=== PATIENT | female | born 2000 ===

== ENCOUNTER 2025-06-06 17:18 | Emergency (ER) | payer SELFPAY ==
--- NOTE | ~2025-06-06 | US_ITS ---
CLINICAL HISTORY: SEVERE LOWER PELVIC TTP. HCG PENDING, PRIOR OV CYS Transabdominal pelvic ultrasound Comparison: None Findings: Uterus 5.6 x 3.1 x 2.8 cm. Endometrium 3 mm thickness. No significant free fluid. Right ovary ovary is not identified. Transvaginal study can not be performed. 4.0 x 3.9 x 3.9 cm heterogeneous structure measured in left adnexa. This may represent the patient's left ovary. No specific abnormality is noted. Flow was not attempted. Transvaginal study may be of value. Impression: Limited study as above Question visualization of normal left ovary Recommend follow-up transvaginal study This document has been electronically signed by: Nemesio Armando MD on 06/06/2025 19:19:44
[2025-06-06 17:35] VITALS: BP 121/71; PULSE 116; RESP 20; TEMP 36.6; O2SAT 95; BMI 22.8
--- NOTE | 2025-06-06 17:36 | ED.ABDPAIN ---
HPI - Abdominal Pain General Chief Complaint: Nausea/Vomiting/Diarrhea Stated Complaint: vomiting/abd pain Time Seen by Provider: 06/06/25 18:35 Related Data Allergies Allergy/AdvReac Type Severity Reaction Status Date / Time No Known Allergies Allergy Verified 06/06/25 17:38 [facility] Social History Social History Advance Directives: No Advance Directives Information Provided: No Do you have a plan to hurt others: No Plan Physical Exam ED Vital Signs: BMI result Body Mass Index 22.8 Course Course Course Narrative: This is a Rapid Medical Exam performed in triage by Ava Waldron PA-C. Full HPI, ROS and PE to be performed by primary ED provider. 25 yo F presenting to the ED c/o abdominal pain, CP, N/V since last night. Also reports myalgias, cough, decreased PO intake. +blood in emesis PE: anxious, abdomen soft diffusely ttp, no rebound or guarding Plan: EKG, labs, UA, CXR, SARs Medical Decision Making Lab Data 06/06/25 18:12 06/06/25 18:12 Labs: Lab Results 06/06/25 Range/Units 18:12 WBC 11.5 H (4.8-10.8) X10*3/uL RBC 4.54 (4.20-5.50) X10*6/uL Hgb 12.7 (12.0-16.0) g/dl Hct 37.2 (37.0-47.0) % MCV 81.9 (80.0-98.0) fL MCH 28.0 (27.0-33.0) pg MCHC 34.1 (31.0-35.0) g/dl RDW 12.5 (11.0-16.0) % Plt Count 259 (160-400) X10*3/uL MPV 10.5 (9.4-12.3) fL Immature Gran % (Auto) 0.6 H (0.0-0.4) % Neut % (Auto) 84.0 H (45-73) % Lymph % (Auto) 6.5 L (20-40) % Broome % (Auto) 8.6 (2-11) % Eos % (Auto) 0.0 (0-4) % Baso % (Auto) 0.3 (0-2) % Lymph # (Auto) 0.8 L (1.2-4.9) X10*3/uL Broome # (Auto) 1.0 (0.1-1.2) X10*3/uL Eos # (Auto) 0.0 (0.0-0.4) X10*3/uL Baso # (Auto) 0.0 (0.0-0.2) X10*3/uL Abs Immat Gran (auto) 0.07 H (0.00-0.03) X10*3/uL Absolute Neuts (auto) 9.7 H (2.0-8.3) x10*3/uL Absolute Nucleated RBC 0.000 (0.0-0.012) X10*3/uL Nucleated RBC % (auto) 0.0 (0.0-0.2) /100WBC Sodium 139 (135-145) mmol/L Potassium 3.0 L (3.3-5.1) mmol/L Chloride 108 (96-108) mmol/L Carbon Dioxide 20 L (22-29) mmol/L Anion Gap 14 (12-20) BUN 11 (9-16) mg/dL Creatinine 0.79 (0.5-1.4) mg/dL Estim Creat Clear Calc 84.6 Estimated GFR > 60 Random Glucose 126 H (60-115) mg/dL Calcium 9.3 (8.4-10.2) mg/dL Magnesium 1.6 (1.6-2.6) mg/dL Total Bilirubin 0.7 (0.0-1.0) mg/dL Direct Bilirubin 0.3 (0.0-0.5) mg/dL AST 31 (5-31) U/L ALT 18 (0-31) U/L Alkaline Phosphatase 58 (39-117) U/L Troponin I High Sens < 2.7 (<3.5-17.0) ng/L Total Protein 7.6 (6.5-8.0) g/dL Albumin 4.5 (3.5-5.0) g/dL Lipase 18 (8-78) U/L Beta HCG, Quant < 2 mIU/mL Influenza Type A (PCR) POSITIVE A (Negative) Influenza Type B (PCR) NEGATIVE (Negative) RSV RNA Qual (PCR) NEGATIVE (Negative) SARS-CoV-2 RNA (RT-PCR) NEGATIVE (Negative) Discharge Plan Discharge Clinical Impression: Abdominal pain Patient Disposition: Left W/O Completing Treatment Discharge Date/Time: 06/06/25 22:22
--- NOTE | 2025-06-06 17:37 | ECG_ITS ---
Test Reason : ABD PAIN Blood Pressure : */* mmHG Vent. Rate : 108 BPM Atrial Rate : 108 BPM P-R Int : 152 ms QRS Dur : 78 ms QT Int : 320 ms P-R-T Axes : 60 0 21 degrees QTcB Int : 428 ms Sinus tachycardia cannot exclude old Septal infarct , age undetermined ; could be related to body habitus and lead placement Abnormal ECG No previous ECGs available Referred By: Ava Waldron Electronically Signed By: KIMI MARTIN
[2025-06-06 18:18] LABS: MANUAL DIFF FLAG NO
[2025-06-06 18:34] LABS: Alanine Aminotransferase 18 U/L (0-31); Albumin Level 4.5 g/dL (3.5-5.0); Alkaline Phosphatase 58 U/L (39-117); Anion Gap 14 (12-20); Aspartate Amino Transferase 31 U/L (5-31); Blood Urea Nitrogen 11 mg/dL (9-16); Calcium 9.3 mg/dL (8.4-10.2); Carbon Dioxide 20 mmol/L (22-29); Chloride 108 mmol/L (96-108); Creatinine Clr Calc Pharmacy 84.6; Estimated Glomerular Filt Rate > 60; Lipase 18 U/L (8-78); Magnesium 1.6 mg/dL (1.6-2.6); Potassium 3.0 mmol/L (3.3-5.1); Sodium 139 mmol/L (135-145); Total Protein 7.6 g/dL (6.5-8.0)
[2025-06-06 18:41] LABS: Troponin-I High Sensitivity < 2.7 ng/L (<3.5-17.0)
[2025-06-06 18:56] LABS: Resp Syncy Virus RNA Qual PCR NEGATIVE (Negative); SARS COV2 PCR INHOUSE NEGATIVE (Negative)
[2025-06-06 19:16] LABS: Hematocrit 37.2 % (37.0-47.0); Hemoglobin 12.7 g/dl (12.0-16.0); Imm Gran Abs Auto 0.07 X10*3/uL (0.00-0.03); Imm Gran Pct Auto 0.6 % (0.0-0.4); Lymphocytes Absolute Auto 0.8 X10*3/uL (1.2-4.9); Mean Corpuscular HGB Conc 34.1 g/dl (31.0-35.0); Mean Corpuscular Hemoglobin 28.0 pg (27.0-33.0); Mean Corpuscular Volume 81.9 fL (80.0-98.0); NRBC Abs Auto 0.000 X10*3/uL (0.0-0.012); NRBC Pct Auto 0.0 /100WBC (0.0-0.2); Platelet Count 259 X10*3/uL (160-400); Red Blood Count 4.54 X10*6/uL (4.20-5.50); White Blood Count 11.5 X10*3/uL (4.8-10.8)
--- OUTSIDE RECORDS SUMMARY | 2025-06-06 20:47 | XMS_ITS | Clinical Summary ---
Author Organization [address] Address [address] [place] [id number] Care Team Providers Care Ramp Lead Name Role Phone No, Pcp (Do Not Change Name) Primary Care Provid er Unavailable Allergies Active Allergy Reactions Criticality Noted Date Comments Morphine Anaphylaxis High 08/27/2023 Medications No known medications Active Problems Problem Noted Date Diagnosed Date Acute vaginitis 07/07/2024 Hematuria, unspecified type 07/07/2024 Family History Relation Name Status Comments Father Mother Alive Social History Tobacco Use Types Packs/Day Years Used Date Smoking Tobacco: Never Smokeless Tobacco: Never Tobacco Cessation:Counseling Given: Not Answered Alcohol Use Standard Drinks/Week Comments Yes 0 (1 standard drink = 0.6 oz pur e alcohol) Comments Unknown Sex and Gender Information Value Date Recorded Sex Assigned at Not on file Legal Sex Female 7:15 AM EST Gender Identity Not on file Sexual Orientation Not on file Last Filed Vital Signs Vital Sign Reading Time Taken Comments Blood Pressure 106/64 07/07/2024 10:38 AM EST Pulse 66 07/07/2024 10:38 AM EST Temperature 36.7 C (98.1 F) 07/07/2024 10:38 AM EST Respiratory Rate 15 07/07/2024 10:38 AM EST Oxygen Saturation 98% 07/07/2024 10:38 AM EST Inhaled Oxygen Concentration - - Weight 56.2 kg (124 lb) 07/07/2024 10:38 AM EST Height 157.5 cm (5' 2 ) 07/07/2024 10:38 AM EST Body Mass Index 22.68 07/07/2024 10:38 AM EST Plan of Treatment Health Maintenance Due Date Last Done Comments HIV screening 2011 Hepatitis C screening 2016 Tetanus adult (Td q 10,TDAP once) 2018 Cervical cancer screening 2019 Influenza vaccine 01/06/2025 Covid-19 vaccine series ( - 2024- season) 2025 RSV Immunization (1 - 1-dose 75+ series) 2073 Meningococcal B Vaccine Aged Out No l onger eligible based on patient's age to complete this topic Meningococcal Vaccine Aged Out No ángela claudia eligible based on patient's age to complete this topic Pneumococcal Vaccine (2 - 49 years) Aged Out No longer eligible based on patient's age to complete this topic Insurance [place] Care Teams Ramp Lead Relationship Specialty Start Date End Date No, Pcp (Do Not Change Name) PCP - General 07/07/24
--- OUTSIDE RECORDS SUMMARY | 2025-06-06 20:47 | XMS_ITS | Clinical Summary ---
Author Organization [facility] Address [address] [place] [address] Care Team Providers Care Canteen Operator Name Role Phone Daphney Iverson APRN Primary Care Provider + Allergies Active Allergy Reactions Criticality Noted Date Comments Morphine Anaphylaxis High 08/27/2023 Medications SUMAtriptan (IMITREX) 100 MG tabletIndication s:Migraine without aura and without status migrainosus, not intractable Take 1 tablet (100 mg total) by mouth once as needed for migraine. May repeat in 2 hours if unresolved. Do not exceed 200 mg in 24 hours. 9 tablet 02/16/2025 Active Active Problems Problem Noted Date Diagnosed Date Alcohol use 10/02/2023 Subclinical hyperthyroidism 10/02/2023 Assessment & Plan (02/16/2025 11:03 AM EDT): - Diagnosed in October 2023 -Needs repeat blood work now due to abnormal menses -Patient is getting her period on a monthly basis but it is more irregular She has not followed up with her sales technician since October 2023 Depending on lab work may send her back for reevaluation-differential was thyroiditis versus Graves' disease Orders: TSH, HIGHLY SENSITIVE T4, Free THYROID STIMULATING IMMUNOGLOBULIN Thyroid Peroxidase Antibody Bipolar affective disorder, currently manic, mil d 08/27/2023 Family History Medical History Relation Name Comments ADD / ADHD Brother Diabetes Father Donel Glaucoma Father Donel Kidney cancer Father Donel Kidney disease Father Donel Breast cancer Maternal Aunt Hanh Lung cancer Maternal Grandfather Yobany Breast cancer Maternal Grandmother Emani Diabetes Maternal Uncle Reyes Depression Mother Martha Breast cancer Paternal Aunt Diabetes Paternal Grandmother Relation Name Status Comments Brother Father Fanta Maternal Aunt Hanh Maternal Grandfather Yobany Maternal Grandmother Emani Maternal Uncle Reyes Mother Martha Paternal Aunt Paternal Grandmother Social History Tobacco Use Types Packs/Day Years Used Date Smoking Tobacco: Never Passive Smoke Exposure: Never Smokeless Tobacco: Never Tobacco Cessation:Counseling Given: No Comments:Only 6 times Alcohol Use Standard Drinks/Week Comments Yes 7 (1 standard drink = 0.6 oz pur e alcohol) about 4x a week for both [facility] Utilities Answer Date Recorded In the past 12 months has th e electric, gas, oil, or water company threatened to shut off services in your home? No 08/11/2024 Social Connection and Isolation Panel Answer Date Recorded In a typical week, how many times do you talk on the phone with family, friends, or neighbors? More than three times a week 08/11/2024 Frequency of Social Gatherin gs with Friends and Family Not on file 08/11/2024 Attends Orthodoxy Services Not on file 08/11 Active Member of Clubs or Organizations Not on f ile 08/11/2024 Attends Club or Organization Meetings Not on andrea e 08/11/2024 Marital Status Not on file 08/11/2024 AUDIT-C Answer Date Recorded Q1: How often do you have a drink containing alc ohol? 2-4 times a month 08/11/2024 Q2: How many drinks containi ng alcohol do you have on a typical day when you are drinking? 3 or 4 08/11/2024 Frequency of Binge Drinking Not on file 11/2024 Overall Financial Resource Strain (CARDIA) Answe r Date Recorded How hard is it for you to pa y for the very basics like food, housing, medical care, and heating? Somewhat hard 08/27/2023 PHQ-2 Answer Date Recorded PHQ-2 Total Score 0 08/12/2024 [facility] - Occupational Stress Questionnaire Answer Date Recorded Do you feel stress - tense, restless, nervous, or anxious, or unable to sleep at night because your mind is troubled all the time - these days? Rather much 08/27/2023 Hunger Vital Sign Answer Date Recorded Within the past 12 months, y ou worried that your food would run out before you got the money to buy more. Patient declined Within the past 12 months, t he food you bought just didn't last and you didn't have money to get more. Sometimes true 11/2024 PRAPARE - Transportation Answer Date Re corded In the past 12 months, has l ack of transportation kept you from medical appointments or from getting medications? No 11/2024 In the past 12 months, has l ack of transportation kept you from meetings, work, or from getting things needed for daily living? No 08/11/2024 Housing Stability Vital Sign Answer Jacinto e Recorded In the last 12 months, was t here a time when you were not able to pay the mortgage or rent on time? Yes 08/27/2023 Number of Places Lived in the Last Year Not on f ile 08/27/2023 In the last 12 months, was t here a time when you did not have a steady place to sleep or slept in a mcc (including now)? Yes 08/27/2023 Housing Stability Vital Sign Answer Jacinto e Recorded In the last 12 months, was t here a time when you were not able to pay the mortgage or rent on time? No 08/11/2024 In the past 12 months, how m any times have you moved where you were living? 0 08/11/2024 At any time in the past 12 m [facility], were you homeless or living in a mcc (including now)? No 08/11/2024 Physical Activity Answer Date Recorded On average, how many days pe r week do you engage in moderate to strenuous exercise (like a brisk walk)? 0 days 08/12/2024 On average, how many minutes do you exercise per day at this level? 0 min 08/12/2024 Education Answer Date Recorded What is the highest level of school you have completed or the highest degree you have received? Some college, no degree 08/11/2024 Comments Unknown Sex and Gender Information Value Date Recorded Sex Assigned at Female 08/26/2023 7:15 PM EDT Legal Sex Female 8:54 AM EST Gender Identity Female 09/29/2024 10:59 AM EDT Sexual Orientation Heterosexual (straight) 09/29 12:18 PM EDT Last Filed Vital Signs Vital Sign Reading Time Taken Comments Blood Pressure 110/84 02/16/2025 10:41 AM EDT Pulse 73 02/16/2025 10:41 AM EDT Temperature 36.3 C (97.3 F) 02/16/2025 10:41 AM EDT Respiratory Rate 16 02/16/2025 10:41 AM EDT Oxygen Saturation 100% 02/16/2025 10:41 AM EDT Inhaled Oxygen Concentration - - Weight 55.9 kg (123 lb 3.2 oz) 02/16/2025 10:41 AM EDT Height 157.5 cm (5' 2 ) 02/16/2025 10:41 AM EDT Body Mass Index 22.53 02/16/2025 10:41 AM EDT Plan of Treatment Upcoming Encounters Date Type Department Care Team (Late st Contact Info) Description 10/19/2025 12:45 PM EDT Office Visit [facility] [address] [place] [address] Daphney Iverson APRN [address] [place] [address] Health Maintenance Due Date Last Done Comments DTaP/Tdap/Td Vaccines (1 - Tdap) 2017 Hepatitis B Vaccines (1 of 3 - 19+ 3-dose series) 2017 COVID-19 Vaccine (1 - 2024-2 6 season) 2025 Physical 10/01/2026 10/02/2023 Pap Smear (Ages 21-65) 08/13/2027 08/12/2024 HIV Screening Completed 09/11/2023 Hepatitis C Virus Screening Completed 09/11/2023 HPV Vaccines (No Doses Required) Completed Influenza Vaccine Discontinued Pneumococcal Vaccine: Pediat tommie (0-5 Years) and At-Risk Patients (6 to 49 Years) Aged Out No longer eligible b ased on patient's age to complete this topic Procedures Procedure Name Priority Date/Time Associated Diagnosis Comments THINPREP PAP TEST (DOCUMENT MANAGEMENT SPECIALIST) WITH HPV SCREEN Routine 08/12/2024 11:13 AM EST Cervical cancer screening HIV 1/2 AG/AB CMIA REFLEX TO CONFIRMATION Routine 09/11/2023 12:52 PM EDT Screening for STD (sexually transmitted disease) HEPATITIS C VIRUS (HCV) ANTIBODY Routine 09/11/2023 12:52 PM EDT Screening for STD (sexually transmitted disease) from Last 3 Months or Most Recently Relevant to Health Maintenance Results * ThinPrep Pap Test (Heel Lining Paster) with HPV Screen (08/12/2024 11:13 AM EST) Clinical Information [facility] Comment:None given LMP: [facility] Comment:NOT PRESENTLY Previous PAP: [facility] Comment:NONE GIVEN Previous Biopsy Ques [employer] Comment:NONE GIVEN Source: [facility] Comment:Endocervix Statement of Adequacy: [facility] Comment: Satisfactory for evaluation. Endocervical/transformation zone component absent. Interpretation/Res ult: [facility] Comment: Cytology Results: Negative for intraepithelial lesion or malignancy. Infection: [facility] Comment: Shift in vaginal martha suggestive of bacterial vaginosis. Comment: [facility] Comment: This Pap test has been evaluated with computer assisted technology. Prefitter: [facility] Comment: MXD, CT (ASCP) CT screening location: [place] [address] Comment [facility] Comment: EXPLANATORY NOTE: The Pap is a screening test for cervical cancer. It is not a diagnostic test and is subject to false negative and false positive results. It is most reliable when a satisfactory sample, regularly obtained, is submitted with relevant clinical findings and history, and when the Pap result is evaluated along with historic and current clinical information. Hpv Mrna [id number] Not Detected Not Detected [facility] Comment: Methodology: Certified Novell Administrator-Mediated Amplification This assay detects E6/E7 viral messenger RNA (mRNA) from 14 high-risk HPV types (16,18,31,33,35,39,45,51,52,56,58,59,66,68). Cervical sources are required for HPV testing. If a vaginal source from a patient who has had a total hysterectomy with removal of cervix was submitted, please contact the testing laboratory for alternative testing options. For additional information, please refer to http://[employer]antaLife/faq/HDW192f3 (This link if provided for information/ educational purposes only.) 08/12/2024 11:1 3 AM EST 08/15/2024 8:14 AM EDT Daphney Iverson PORTER USED [facility] AMB PATH/CYTO ORDERA BLES Final Result Performing Organization Address [facility] de Phone Number [employer] [address] [place] [phone] * HIV 1/2 Ag/Ab CMIA Reflex to Confirmation (09/11/2023 12:52 PM EDT) HIV Ag/Ab, 4th Gen NON-REACT DAISY NON-REACT DAISY [facility] Comment: HIV-1 antigen and HIV-1/HIV-2 antibodies were not detected. There is no laboratory evidence of HIV infection. PLEASE NOTE: This information has been disclosed to you from records whose confidentiality may be protected by state law. If your state requires such protection, then the state law prohibits you from making any further disclosure of the information without the specific written consent of the person to whom it pertains, or as otherwise permitted by law. A general authorization for the release of medical or other information is NOT sufficient for this purpose. For additional information please refer to http://[employer]antaLife/faq/VXE410 (This link is being provided for informational/ educational purposes only.) The performance of this assay has not been clinically validated in patients less than 2 years old. Blood specimen (specimen) 09/11/2023 12:52 PM EDT 09/11/2023 12:52 PM EDT Narrative [facility] - 09/13/2023 4:19 PM EDT FASTING:YES AN UPDATE OR CORRECTION HAS BEEN MADE TO NAME FASTING: YES Daphney Iverson APRN LAB BLOOD ORDERABLES Fin al Result Performing Organization Address [facility]/State/ZIP Co de Phone Number [employer] [address] [place] [phone] * HEPATITIS C VIRUS (HCV) ANTIBODY (09/11/2023 12:52 PM EDT) Hepatitis C Antibody NON-REACT DAISY NON-REACT DAISY [facility] Comment: HCV antibody was non-reactive. There is no laboratory evidence of HCV infection. In most cases, no further action is required. However, if recent HCV exposure is suspected, a test for HCV RNA (test code 48560) is suggested. For additional information please refer to http://education.QuantaLife/faq/LTX14u2 (This link is being provided for informational/ educational purposes only.) Blood specimen (specimen) 09/11/2023 12:52 PM EDT 09/11/2023 12:52 PM EDT Narrative [facility] - 09/13/2023 4:19 PM EDT FASTING:YES AN UPDATE OR CORRECTION HAS BEEN MADE TO NAME FASTING: YES Daphney Iverson APRN LAB BLOOD ORDERABLES Fin al Result [employer] [address] [place] [phone] from Last 3 Months or Most Recently Relevant to Health Maintenance Insurance [facility] Care Teams Canteen Operator Relationship Specialty Start Date End Date Daphney Iverson APRN [address] [place] [address] PCP - General Internal Medicine 08/27/23
== END 2025-06-06 22:22 | disposition left against medical advice (07) ==
PROVIDERS: Physician Assistant; Emergency Provider Emergency Medicine
DX: J10.1 Influenza due to other identified influenza virus with other respiratory manifestations (principal); R10.20 Pelvic and perineal pain unspecified side; R05.9 Cough, unspecified; R11.2 Nausea with vomiting, unspecified; Z03.818 Encounter for observation for suspected exposure to other biological agents ruled out
CPT/HCPCS: 76830; 76856; 80048; 80076; 83690; 83735; 84484; 84702; 85025; 87637; 93005; 99281; 99284

== ENCOUNTER → 2025-06-06 17:37 | Outpatient (BNV) | payer SELFPAY | PROVIDERS: Emergency Provider Emergency Medicine; Visit Provider Internal Medicine | DX: R00.0 Tachycardia, unspecified (principal) | CPT/HCPCS: 93010 ==

== ENCOUNTER → 2025-06-06 18:05 | Outpatient (BNV) | payer SELFPAY | PROVIDERS: Visit Provider Radiology Diagnostic Radiology | DX: R10.20 Pelvic and perineal pain unspecified side (principal) | CPT/HCPCS: 76830; 76856 ==